=== PATIENT | female | born 1990 | race Asian ===

== ENCOUNTER 2019-05-24 18:32 | Emergency (ER) | payer SELFPAY ==
[~2019-05-24] VITALS: Ht 154.9 cm; Wt 88.5 kg
[2019-05-24 19:05] VITALS: BP 130/74
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
--- NOTE | 2019-05-24 19:06 | NUR ---
ED Nurse Note: Pt was taken for CT via wc, accompanied by a tech.
--- NOTE | 2019-05-24 19:22 | NUR ---
ED Nurse Note: Pt came back from CT, not in any distress.
--- NOTE | 2019-05-24 19:52 | Diagnostic Imaging Report ---
Indication: Headache Technique: Contiguous 5 mm thick transaxial imaging of the head obtained in a Siemens Sensation [address] scanner. Soft tissue and bone windows generated. Automatic Exposure Control was utilized. Total Dose length Product (DLP): 018.8mGycm CT Dose Index Volume (CTDIvol): 53.4 mGy Comparison: none Findings: The size and configuration of the cortical sulci, basal cisterns, and ventricles are within normal limits for age. There is no mass effect, midline shift, or edema identified. There is no evidence of acute hemorrhage or abnormal intra-axial or extra-axial fluid collections. The bones and soft tissues are unremarkable. Impression: No mass effect, edema or acute bleed. The CT scanner at [facility] is accredited by the [employer] and the scans are performed using dose optimization techniques as appropriate to a performed exam including Automatic Exposure control.
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
[2019-05-24] MEDS ORDERED: ROBAXIN-500MG ORAL (19:55)
[2019-05-24] MEDS ORDERED: IBUPROFEN600 MG ORAL (19:55)
[2019-05-24] MEDS ORDERED: LIDODERM700 M1 TOPIC (19:55)
[2019-05-24] MEDS ORDERED: Methocarbamol 750mg tab ORAL ONE (20:00)
[2019-05-24 20:10] VITALS: BP 130/74
--- NOTE | 2019-05-24 20:10 | NUR ---
ED Nurse Note: Pt cleared by ERMD for discharge. DC instructions/prescription was given and explained to pt and verbalized understanding of teachings. All medical deviecs such as ID band removed. Pt is AAO x4, ambulatory and left with all personal belongings. Accompanied by s/o.
== END 2019-05-24 20:10 | disposition home or self-care (01) ==
LOC: EMR 19:29
DX: S00.93XA Contusion of unspecified part of head, initial encounter (principal); S16.1XXA Strain of muscle, fascia and tendon at neck level, initial encounter; V49.9XXA Car occupant (driver) (passenger) injured in unspecified traffic accident, initial encounter; Y92.411 Interstate highway as the place of occurrence of the external cause
CPT/HCPCS: 70450; 99284